=== PATIENT | female | born 1945 | race Caucasian/White ===

== ENCOUNTER 2017-01-05 12:16 | Inpatient (IN) | payer MEDICARE, MEDICAID ==
[~2017-01-05] VITALS: Ht 172.7 cm; Wt 113.2 kg
[2017-01-05] MEDS ORDERED: IBUP-1953 PO (12:30)
[2017-01-05] MEDS ORDERED: ISOS30TA6 PO (12:30)
[2017-01-05] MEDS ORDERED: GABA-536 PO (12:30)
[2017-01-05] MEDS ORDERED: CLOP75TA15 PO (12:30)
[2017-01-05] MEDS ORDERED: ESCI10TA PO (12:30)
[2017-01-05] MEDS ORDERED: LORA1TAB PO (12:30)
[2017-01-05] MEDS ORDERED: HYDR2TAB4 PO (12:30)
[2017-01-05] MEDS ORDERED: DOCU-106 PO (12:30)
[2017-01-05] MEDS ORDERED: TEMA15CA PO (12:30)
[2017-01-05] MEDS ORDERED: CARV3.122 PO (12:30)
--- NOTE | 2017-01-05 12:30 | NUR ---
PATIENT C/O COUGH X 6 MONTH WITH BLOOD IN SPUTUM. SHE IS A/A/O X3. PLACED ON MONITOR. IV PLACED IN RIGHT HAND.
[2017-01-05 12:56] LABS: BASOPHILS # (AUTO) 0.2 K/uL (0.0-8.0); BASOPHILS % (AUTO) 2.1 % (0.0-2.0); EOSINOPHILS # (AUTO) 0.3 K/uL (0.0-0.7); EOSINOPHILS % (AUTO) 3.3 % (0.0-7.0); HEMATOCRIT 39.5 % (37-47); HEMOGLOBIN 12.7 G/DL (12.0-16.0); LYMPHOCYTES # (AUTO) 1.4 K/UL (0.8-4.8); LYMPHOCYTES % (AUTO) 15.8 % (20.5-51.5); MEAN CORPUSCULAR HGB CONC 32 g/dL (32.0-37.0); MEAN CORPUSCULAR VOLUME 86.9 FL (81.0-99.0); MONOCYTES # (AUTO) 0.6 K/UL (0.1-1.30); MONOCYTES % (AUTO) 6.9 % (0.0-11.0); NEUTROPHILS # (AUTO) 6.6 K/UL (1.8-8.9); NEUTROPHILS % (AUTO) 71.9 % (38.5-71.5); PLATELET COUNT (AUTO) 336 K/UL (150-450); RED BLOOD CELL COUNT(AUTO) 4.55 MIL/UL (4.2-5.4); WHITE BLOOD COUNT (AUTO) 9.1 K/UL (4.0-11.2)
[2017-01-05 13:07] LABS: CREATININE 0.7 mg/dL (0.6-1.3); POTASSIUM 3.7 mmol/L (3.5-5.1)
[2017-01-05 13:19] LABS: BILIRUBIN,DIRECT 0.2 mg/dL (0.0-0.2); BILIRUBIN,TOTAL 0.7 mg/dL (0.2-1.0); TOTAL PROTEIN, SERUM 7.3 g/dL (6.4-8.2)
--- NOTE | 2017-01-05 14:40 | NUR ---
AWAITING TEST RESULTS. PATIENT STATES PAIN HAS DIMINISHED. PT AWARE OF PENDING ADMISSION. REPORT GIVEN TO INO RIOJAS.
[2017-01-05 15:35] VITALS: BP 148/84
--- NOTE | 2017-01-05 15:53 | NUR ---
71 year old female admitted to room 218 for chest pain ,pt is axox3,v/s are stable.md called for the admission orders
[2017-01-05 20:30] VITALS: BP 168/86
--- NOTE | 2017-01-05 20:45 | NUR ---
PT SEEN BY DR. VASQUES.
[2017-01-06 04:00] VITALS: BP 139/90
--- NOTE | 2017-01-06 06:00 | NUR ---
PT SLEPT INTERMITTENTLY, IN NO ACUTE DISTRESS. PT IS ON TELE - AFIB. PT C/O GENERALIZED PAIN, PAIN MANAGEMENT ORDERED. BREATHING TX ORDERED. CALL LIGHT WITHIN REACH, BED ALARM ON. WILL CONTINUE TO MONITOR.
[2017-01-06 06:27] LABS: EOSINOPHILS % (AUTO) 0.2 % (0.0-7.0); HEMATOCRIT 36.2 % (37-47); HEMOGLOBIN 12.3 G/DL (12.0-16.0); LYMPHOCYTES % (AUTO) 12.6 % (20.5-51.5); MEAN CORPUSCULAR HEMOGLOBIN 29.6 UUG (27.0-31.0); MEAN CORPUSCULAR HGB CONC 34 g/dL (32.0-37.0); MONOCYTES # (AUTO) 1.1 K/UL (0.1-1.30); NEUTROPHILS # (AUTO) 12.4 K/UL (1.8-8.9); NEUTROPHILS % (AUTO) 80.2 % (38.5-71.5); PLATELET COUNT (AUTO) 335 K/UL (150-450); RED BLOOD CELL COUNT(AUTO) 4.16 MIL/UL (4.2-5.4); WHITE BLOOD COUNT (AUTO) 15.5 K/UL (4.0-11.2)
[2017-01-06 06:51] LABS: THYROID STIMULATING HORMONE 0.542 mIU/mL (0.358-3.740)
[2017-01-06 07:17] LABS: BILIRUBIN,TOTAL 0.5 mg/dL (0.2-1.0); CREATININE 0.7 mg/dL (0.6-1.3); MAGNESIUM 1.6 mg/dL (1.8-2.4); PHOSPHOROUS 3.6 mg/dL (2.5-4.9); POTASSIUM 4.2 mmol/L (3.5-5.1); TOTAL PROTEIN, SERUM 7.2 g/dL (6.4-8.2)
--- NOTE | 2017-01-06 07:30 | NUR ---
pt received in bed sleeping,call light with in reach.no c/o pain noted
[2017-01-06 09:02] LABS: BAND % (MANUAL) 4 % (0-10); LYMPHOCYTES % (MANUAL) 7 % (20-40); MONOCYTES % (MANUAL) 7 % (2-10); NEUTROPHILS % (MANUAL) 82 % (42-75)
[2017-01-06 10:40] VITALS: BP 111/70
[2017-01-06] MEDS ORDERED: ISOS10TA2 PO (10:50)
--- NOTE | 2017-01-06 11:07 | NUR ---
2d echo done,urine sample send to lab
--- NOTE | 2017-01-06 11:07 | NUR ---
pt seen by dr cabrera
[2017-01-06] MEDS ORDERED: ISOS10TA8 PO (11:10)
[2017-01-06 11:30] VITALS: BP 96/52
[2017-01-06 11:33] LABS: *BILIRUBIN,URIN NEGATIVE (NEGATIVE); *BLOOD, URINE Trace-lysed (NEGATIVE); *CLARITY,URINE SLIGHTLY CLOUDY (CLEAR); *COLOR,URINE YELLOW (YELLOW); *KETONES,URINE NEGATIVE (NEGATIVE); *PROTEIN,URINE NEGATIVE (NEGATIVE); *UROBILINOGEN,URINE 0.2 E.U./dl (NORMAL); LEUKOCYTE ESTERASE ,URINE 3+ (NEGATIVE); NITRITE, URINE POSITIVE (NEGATIVE); UGLUCOSE NEGATIVE (NEGATIVE)
[2017-01-06 11:40] LABS: BACTERIA,URINE MANY /HPF (NONE SEEN)
[2017-01-06 11:41] LABS: RBC,URINE 0-3 /HPF (0-3); SQUAMOUS EPITHELIAL CELL,UR MODERATE /HPF (NONE SEEN); WBC,URINE 80-100 /HPF (0-3)
[2017-01-06 15:38] VITALS: BP 109/79
[2017-01-06 15:43] VITALS: BP 109/79
--- NOTE | 2017-01-06 16:30 | NUR ---
PT SLEPT INTERMITTENTLY, IN NO ACUTE DISTRESS. PT IS ON TELE - AFIB.. CALL LIGHT WITHIN REACH, BED ALARM ON. WILL CONTINUE TO MONITOR
[2017-01-06 20:00] VITALS: BP 104/80
[2017-01-07] VITALS (7 sets, daily range): BP systolic 105–147; BP diastolic 60–89
--- NOTE | 2017-01-07 06:27 | NUR ---
PT SLEPT INTERMITTENTLY, IN NO ACUTE DISTRESS, NO SOB. BREATHING TX ORDERED. NO SIGNIFICANT CHANGE OF CONDITION THROUGHOUT THE SHIFT. PT STABLE, AFEBRILE. WILL CONTINUE TO MONITOR.
[2017-01-07 07:17] LABS: EOSINOPHILS % (AUTO) 0.1 % (0.0-7.0); HEMOGLOBIN 12.4 G/DL (12.0-16.0); LYMPHOCYTES # (AUTO) 1.1 K/UL (0.8-4.8); LYMPHOCYTES % (AUTO) 7.8 % (20.5-51.5); MEAN CORPUSCULAR HEMOGLOBIN 28.6 UUG (27.0-31.0); MEAN CORPUSCULAR HGB CONC 33 g/dL (32.0-37.0); MEAN CORPUSCULAR VOLUME 87.2 FL (81.0-99.0); MONOCYTES # (AUTO) 0.6 K/UL (0.1-1.30); MONOCYTES % (AUTO) 4.3 % (0.0-11.0); NEUTROPHILS % (AUTO) 87.8 % (38.5-71.5); PLATELET COUNT (AUTO) 387 K/UL (150-450); RED BLOOD CELL COUNT(AUTO) 4.35 MIL/UL (4.2-5.4); WHITE BLOOD COUNT (AUTO) 14.7 K/UL (4.0-11.2)
[2017-01-07 07:50] LABS: BILIRUBIN,TOTAL 0.3 mg/dL (0.2-1.0); CREATININE 0.8 mg/dL (0.6-1.3); PHOSPHOROUS 3.7 mg/dL (2.5-4.9); POTASSIUM 4.7 mmol/L (3.5-5.1); TOTAL PROTEIN, SERUM 7.6 g/dL (6.4-8.2)
--- NOTE | 2017-01-07 08:00 | NUR ---
AWAKE ALERT AND ORIENTED X3 SLIGHT SOB ON EXERTION AND WHEEZING O2 2L NC SATURATING 98%. CONTINUE WITH CURRENT TX PLAN
[2017-01-07 08:53] LABS: ABG BASE EXCESS 2.3 mmol/L; ABG HCO3 28.6 mmol/L; ABG PCO2 51.7 mmHg (35.0-45.0); ABG PH 7.361 (7.350-7.450); ABG PO2 80.6 mmHg (75.0-100.0); ABG SITE RIGHT RADIAL; ABG TOTAL HEMOGLOBIN 13.1 G/dL (12.0-16.0); COHb 1.4 % (0.5-1.5); MetHb 0.3 % (0.0-1.5); O2Hb 94.4 % (94.0-97.0)
--- NOTE | 2017-01-07 12:00 | NUR ---
NO SIGNS OF DISTRESS WITH O2 2L NC, SEEN BY DR EMERSON SEE NOTES
[2017-01-07 12:40] LABS: BAND % (MANUAL) 6 % (0-10); LYMPHOCYTES % (MANUAL) 9 % (20-40); MONOCYTES % (MANUAL) 7 % (2-10); NEUTROPHILS % (MANUAL) 78 % (42-75)
--- NOTE | 2017-01-07 15:31 | NUR ---
CONTINUE WITH PAIN MANAGEMENT FOR BACK PAIN,
--- NOTE | 2017-01-07 19:30 | NUR ---
RECEIVED PATIENT LAYING COMFORTABLY IN BED. NO ACUTE DISTRESS NOTED. PATIENT IS ON 02 2L NC. NOTED SACRAL REDNESS, BREAST FOLD REDNESS AND MULTIPLE SCAB WOUNDS ON BILATERAL LEGS AND ARMS BECAUSE IF ITCHING. PATIENT IS ALERT AND ORIENTED BUT FORGETFUL. PATIENT C/O PAIN IN THE BACK. WILL REVIEW MEDS, WILL GIVE MEDS ORDERED. PATIENT IS INCONTINENT, ON DIAPER. SAFETY INITIATED. WILL CONTINUE TO MONITOR.
--- NOTE | 2017-01-07 19:57 | NUR ---
PATIENT TAKEN TO GET MRI OF THE SPINE W/ AND W/O CONTRAST. PATIENT IS STABLE. VSS. PTNT IS ON 02 2L NC.
--- NOTE | 2017-01-07 21:40 | NUR ---
PATIENT IS BACK FROM MRI. C/O PAIN 8/ IN HER BACK. WILL REVIEW MEDS AND WILL GIVE MEDS ORDERED. VSS. NO ACUTE DISTRESS NOTED. WILL CONTINUE TO MONITOR.
[2017-01-08 04:00] VITALS: BP 142/91
--- NOTE | 2017-01-08 06:27 | NUR ---
PATIENT SLEPT POORLY T/O SHIFT. PATIENT SUFFERS FROM INSOMNIA. NO ACUTE DISTRESS NOTED. NO C/O SOB OR CHEST PAIN. PATIENT IS ON 02 2L NC. PATIENT FREQUENTLY ASKS FOR PAIN MEDICATION C/O BACK PAIN, MEDS GIVEN, STATED RELIEF. ALL MEDS GIVEN ORDERED. ALL NEEDS MET.
--- NOTE | 2017-01-08 08:00 | NUR ---
Patient's plan of care regarding pain management discussed patient. 1000 patient began feeling anxious because she stated, "where is the doctor, I want to see the doctor". Breathing treatment managed by RT and patient appeared to be less anxious following RT treatment.
--- NOTE | 2017-01-08 09:31 | NUR ---
GABATENTIN TAKEN OUT OF PIXIS BY PSYCHIATRIC NURSING ASSISTANT.
[2017-01-08 11:28] VITALS: BP 122/68
--- NOTE | 2017-01-08 14:35 | NUR ---
1435 Rapid Response was called in due aspiration of 3 medications and water. Patient was choking and HEENT turned red even with HOB properly elevated. Patient tried to cough but was not effective, which prompted the Rapid Response call. As Rapid response arrived at 1435, patient was able to successfully cough, enabling the patient to regain breathing effort, and regain oxygenation to HEENT. Suction equipment and yanker obtained and ready to be used. 1436 end of Rapid Response. Vital signs before rapid response: BP 134/71; HR 104, RR 22; T 98.3; SPo2 95%. Vital signs following rapid response: BP 147/77; HR 112; RR 26; T 97.7; SPo2 97%. Dr. Rosen notified of rapid response. Pureed diet and nectar thick liquids ordered. Medications will be crushed and endorsed to next shift for patient safety.
[2017-01-08 15:40] VITALS: BP 107/60
--- NOTE | 2017-01-08 19:00 | NUR ---
RECEIVED PT AWAKE IN BED. ALERT, ORIENTED X3 BUT DOES HAVE CONFUSION AT TIMES. PT REPEATEDLY ASKING ABOUT DISCHARGE DESPITE EDUCATION PROVIDED. RECEIVING O2 2L VIA NC. NO IV FLUIDS. HEP LOCK RIGHT ARM INTACT. DRINKING FLUIDS WITH THICKENER. ASPIRATION PRECAUTION. HOB ELEVATED. CALL LIGHT WITHIN REACH. WILL CONTINUE TO MONITOR.
[2017-01-08 20:21] VITALS: BP 150/94
[2017-01-09 06:56] VITALS: BP 170/99
--- NOTE | 2017-01-09 07:10 | NUR ---
PT SLEPT COMFORTABLY IN BED THROUGHOUT THE NIGHT. WOKE UP STATING THAT SHE WAS CONFUSED. REORIENTED THE PATIENT. NO SIGNS OF ACUTE DISTRESS. ALL NEEDS ATTENDED. SAFETY PRECAUTIONS OBSERVED. CALL LIGHT WITHIN REACH. SHIFT REPORT GIVEN AT BEDSIDE.
--- NOTE | 2017-01-09 10:00 | NUR ---
PATIENT GIVEN LASIX [address] LANTIGUA CHANGED DOSAGE TO LASIX 20 MG AFTER LASIX [address] SCHROEDER NOTIFIED AND ORDERED TO HOLD THE SECOND DOSE OF LASIX FOR THE DAY.
[2017-01-09 11:47] VITALS: BP 113/61
[2017-01-09 16:00] VITALS: BP 117/69
[2017-01-09] MEDS ORDERED: GABA-534 PO (16:12)
[2017-01-09] MEDS ORDERED: METH4TAB3 PO (16:12)
[2017-01-09] MEDS ORDERED: FURO-152 PO (16:12)
[2017-01-09] MEDS ORDERED: NYST15CR TOP (16:12)
[2017-01-09] MEDS ORDERED: CEPH-570 PO (16:12)
[2017-01-09] MEDS ORDERED: LACT1CAP57 PO (16:12)
[2017-01-09] MEDS ORDERED: QUET25TA PO ×2 (16:12)
[2017-01-09] MEDS ORDERED: FLUT1DIS28 INH (16:13)
--- NOTE | 2017-01-09 16:47 | NUR ---
Discharge Plan: The patient will be discharged today to a [facility] and care facility [[address] [place] [address]] of her choice. The radiology administrator, Kira [ ], will be picking her up via private car. Kira confirmed that she will be picking her up at around 6:00 p.m. Both the patient and Kira are also aware that she needs to follow-up with Dr. Mindy Noel, Neurological Surgeon [ ; [id number], [place] [address]], who might be doing her surgery at [facility] [ ; [address] [place] [address]]. Updated his RNs, [place] [facility] [place], on her discharge plan.
--- NOTE | 2017-01-09 19:21 | NUR ---
Discharge instructions given to pt. Pt aware to f/u with [facility] surgeon on ragan re: spinal mass f/u. All imaging put on disk for patient to give with her PMD. Pt verbalized understanding. Swallowing precautions instructions from ST given to PT. Sirisha from pt's b/c here to warp picker pt. No sob noted. o2 sat on ra 92%. Sirisha states that they have o2 at the b/c if pt needs it. No sob upon discharge.
--- NOTE | 2017-01-09 19:30 | NUR ---
PT IN STABLE CONDITION. IV D/C. DISCHARGE PACKET SIGNED. BELONGINGS LIST SIGNED. PT HAS CAREGIVER FROM [facility] [employer] [facility] FOR TRANSPORTATION.
== END 2017-01-09 19:47 | disposition home health service (06) | DRG 291 ==
LOC: ER 12:16 → TELE 14:56 → MED 01-07 11:42
PROVIDERS: ADMIT Internal Medicine; ATTEND Internal Medicine
DX: I11.0 Hypertensive heart disease with heart failure (principal); J18.9 Pneumonia, unspecified organism; I27.2 Other secondary pulmonary hypertension; D68.59 Other primary thrombophilia; J44.0 Chronic obstructive pulmonary disease with (acute) lower respiratory infection; I48.2 Chronic atrial fibrillation; G95.20 Unspecified cord compression; M48.02 Spinal stenosis, cervical region; R04.2 Hemoptysis; N39.0 Urinary tract infection, site not specified; J44.1 Chronic obstructive pulmonary disease with (acute) exacerbation; I50.31 Acute diastolic (congestive) heart failure; E66.01 Morbid (severe) obesity due to excess calories; Z68.37 Body mass index [BMI] 37.0-37.9, adult; B36.9 Superficial mycosis, unspecified; Z79.02 Long term (current) use of antithrombotics/antiplatelets; Z99.3 Dependence on wheelchair; Z85.830 Personal history of malignant neoplasm of bone; R51 Headache; G47.00 Insomnia, unspecified; B96.20 Unspecified Escherichia coli [E. coli] as the cause of diseases classified elsewhere; Z16.24 Resistance to multiple antibiotics; Z77.22 Contact with and (suspected) exposure to environmental tobacco smoke (acute) (chronic); D32.1 Benign neoplasm of spinal meninges; R73.03 Prediabetes; K80.20 Calculus of gallbladder without cholecystitis without obstruction; M19.90 Unspecified osteoarthritis, unspecified site; F31.9 Bipolar disorder, unspecified; F12.90 Cannabis use, unspecified, uncomplicated; I25.10 Atherosclerotic heart disease of native coronary artery without angina pectoris; N20.0 Calculus of kidney; Z79.899 Other long term (current) drug therapy; Z98.1 Arthrodesis status; G89.29 Other chronic pain; I08.1 Rheumatic disorders of both mitral and tricuspid valves
CPT/HCPCS: 36415; 36600; 70030-TC; 71010; 71275; 72125; 72131; 82306; 83550; 83735; 84100; 84443; 85025; 87070; 87077; 87086; 92523; 93005; 93307; 94640; 94664; 97116; 97530; A4663; J0690; J0696; J1170; J1940; J1956; J2405; J2543; J2930; J3475; J3490; J3590; J7040; J7050; J7060; Q9967